=== PATIENT | female | born 1995 | race Caucasian/White ===

== ENCOUNTER 2022-02-02 18:40 | Outpatient (REF) | payer OTHER, SELFPAY ==
[2022-02-02 20:38] LABS: HCT 41.7 % (36.0-46.0); HGB 13.6 g/dL (11.2-15.7); MCH 28.5 pg (27.0-33.0); MCHC 32.6 % (32.0-36.0); MCV 87.4 fL (80-95); MPV 10.1 fL (8.0-11.0); Platelet Count 298 10^3/uL (130-400); RBC 4.77 10^6/uL (3.93-5.22); RDW-SD 38.7 fL; WBC 9.51 10^3/uL (4.4-10.8)
[2022-02-02 20:49] LABS: Iron 133 ug/dL (50-170); Total Iron Binding Capacity 359 ug/dL (250-450); Transferrin Sat 37 % (15-50)
[2022-02-02 21:02] LABS: TSH (W/Ref FT4) 1.48 uIU/mL (0.36-3.74)
== END 2022-02-02 18:41 | disposition home or self-care (01) ==
LOC: NCHCN 18:40
PROVIDERS: Visit Provider Nurse Practitioner Family
DX: L63.9 Alopecia areata, unspecified (principal)
CPT/HCPCS: 85027; 83540; 83550; 84443

== ENCOUNTER 2023-05-10 14:16 | Outpatient (REF) | payer OTHER, SELFPAY ==
--- NOTE | 2023-05-10 13:15 | PAPFT_PTH ---
PATIENT: Chrissy Boucher LOC: [facility]#:[id number] AGE/SX: 27/F ROOM: RE05/10/[address]: Ani Pinzon : 1995 BED: DIS: 05/10/2023 SPEC #: [id number] RECD: 05/11/23 14:44 STATUS: KEENA REAlan #: [id number] THAD: 05/10/23 13:[address]: Ani Pinzon DEPT: [facility] Cytology RECD BY: Leticia Vee Tissues: 1 - CX/ENDOCX FOR PAP SMEARS Procedures: PAP THIN PREP/[facility] Screening Comments: [id number]
== END 2023-05-10 14:17 | disposition home or self-care (01) ==
LOC: NCHCN 14:16
PROVIDERS: Visit Provider Nurse Practitioner Family
DX: Z12.4 Encounter for screening for malignant neoplasm of cervix (principal); Z11.51 Encounter for screening for human papillomavirus (HPV)
CPT/HCPCS: 88142